=== PATIENT | female | born 1995 | race Two or more races ===

== ENCOUNTER 2018-07-25 11:42 | Outpatient (CLI) | payer OTHER ==
[2018-07-25 12:13] LABS: #Eosinphils 0.1 thou/uL (0.0-0.7); #Monocytes 0.6 thou/uL (0.11-0.59); #Neutrophils 4.2 thou/uL (1.40-6.50); %Basophils 0.3 % (0.0-1.0); %Eosinophils 1.4 % (0.0-10.0); %Lymphocytes 28.8 % (21.0-51.0); %Monocytes 8.7 % (0.0-10.0); %Neutrophils 60.8 % (42.0-75.0); Hemoglobin 14.4 g/dL (12.0-16.0); Mean Corpuscular HGB CONC 33.9 g/dL (32.0-36.0); Mean Corpuscular Hemoglobin 30.2 pg (27.0-31.0); Mean Platelet Volume 6.9 fL (7.4-10.4); Platelet Count 316 thou/uL (130-400); RBC Distribution Width 11.2 % (11.5-14.5); Red Blood Cell (RBC) Count 4.78 mill/uL (4.20-5.40)
[2018-07-25 12:26] LABS: BHCG - Serum Negative (NEGATIVE); Pregs Control Background? CLEAR/WHITE (CLR/WHITE); Pregs Control Bar Appear? YES (CONTROL BAR)
[2018-07-25 12:29] LABS: Anion Gap 10 mmol/L (10-20); BUN (Urea Nitrogen) 12 mg/dL (7.0-18.7); Calc. Creatinine Clearance 0 mL/min (70-130); Calcium 9.8 mg/dL (7.8-10.44); Carbon Dioxide 26 mmol/L (22-29); Chloride 106 mmol/L (98-107); Estimated GFR-MDRD Greater than 90; Glucose 87 mg/dL (70-105); Potassium 4.1 mmol/L (3.5-5.1); Sodium 138 mmol/L (136-145)
== END 2018-07-25 11:43 | disposition home or self-care (01) ==
LOC: LABBT 11:42
PROVIDERS: ATTEND Specialist
DX: Z01.812 Encounter for preprocedural laboratory examination (principal); L05.91 Pilonidal cyst without abscess
CPT/HCPCS: 80048; 84703; 85025

== ENCOUNTER 2018-08-03 10:20 | Day surgery (SDC) | payer OTHER ==
[2018-07-25 12:27] VITALS: BMI 34.0
[2018-08-03] MEDS ORDERED: CEFAZOLIN 2 GM/50 ML BAG ONE (11:57)
[2018-08-03] MEDS ORDERED: Ketorolac Tromethamine 30 MG/ML VIAL ONE (11:57)
[2018-08-03] MEDS ORDERED: Bupivacaine/Epinephrine 0.25% 30 ML VIAL ONE (12:46)
[2018-08-03] MEDS ORDERED: Bacitracin Zinc Ointment 30 gm TUBE ONE (12:46)
[2018-08-03] MEDS ORDERED: Fentanyl 100 MCG/2 ML VIAL ONE ×3 (13:04→14:33)
[2018-08-03] MEDS ORDERED: Midazolam HCl 2 mg/2 ml Vial ONE ×3 (13:04→14:00)
[2018-08-03] MEDS ORDERED: PROPOFOL 200 MG/20 ML VIAL ONE (21:40)
[2018-08-03] MEDS ORDERED: Lidocaine 1% PF 5 ML VIAL ONE (21:40)
[2018-08-03] MEDS ORDERED: Glycopyrrolate 0.2 MG/ML 5 ML SYRINGE ONE (21:40)
--- NOTE | 2018-08-04 22:13 | OP ---
DATE OF PROCEDURE: 08/03/2018 PREOPERATIVE DIAGNOSIS: Pilonidal disease with persistent draining nodule. POSTOPERATIVE DIAGNOSIS: Pilonidal disease with persistent draining nodule. OPERATION PERFORMED: Pilonidal excision with layered closure. ANESTHESIA: General endotracheal. INDICATIONS: The patient is a 23-year-old female. She presents with a persistent draining nodule at the superior aspect of her gluteal cleft. There are multiple pilonidal pits seen inferior to this nodule. She is taken to the operative room at this time for excision of this persistent disease. DESCRIPTION OF OPERATION: Informed consent was obtained and general endotracheal anesthesia was obtained with the patient in the supine position. She was then rolled over into the prone nav-knife position. Her buttocks were taped apart. The sacral area was prepped with ChloraPrep and draped in sterile fashion. An Angiocath was utilized to cannulate the pilonidal opening at the nodule. I infiltrated a mixture of methylene blue and peroxide. This was seen to emanate from several of the pits including the inferior most pit that was small enough that was hard to visualize. I then marked an elliptical incision around the nodule and the multiple pits. Local anesthetic was infiltrated using 0.25% Marcaine with epinephrine. The elliptical incision was created and dissection was carried through the skin and subcutaneous tissue. Dissection was carried around the pilonidal cyst and tract ensuring that no blue dye was encountered during the course of the dissection. The specimen was removed intact and passed off the field. Meticulous hemostasis was obtained within the wound using electrocautery. Additional local anesthetic was infiltrated. Minimal flaps were raised bilaterally to minimize tension of closure. The wound was then closed in layers using interrupted sutures of 2-0 Vicryl to approximate deep layers and close the space. Skin edges were then approximated with interrupted sutures of 2-0 nylon placed in a vertical mattress fashion. Local anesthetic was infiltrated around the wound again. Antibiotic ointment was placed topically and a dry gauze dressing was placed. There were no complications. Blood loss was negligible. The patient tolerated the procedure well and was taken to recovery room in stable condition. Job ID: [id number]
== END 2018-08-03 17:03 | disposition home or self-care (01) ==
LOC: SDC 10:20
PROVIDERS: ATTEND Specialist
PROC: 0JB90ZZ Excision of Buttock Subcutaneous Tissue and Fascia, Open Approach (ICD-10-PCS; principal; 2018-08-03)
DX: L05.91 Pilonidal cyst without abscess (principal); Z79.3 Long term (current) use of hormonal contraceptives; Z79.899 Other long term (current) drug therapy
CPT/HCPCS: 88304; J0131; J1885; J2001; J2250; J2704; J3010; Q9968